=== PATIENT | male | born 1985 | race Caucasian/White ===

== ENCOUNTER 2017-01-13 06:25 | Emergency (ER) | payer OTHER ==
[~2017-01-13 06:25] MED LIST: IBUPROFEN800 MG PO; LORTAB 5/500 TA1 TA1 PO; NO MEDICATIONS; PEN-VEE K PO
== END 2017-01-13 06:33 | disposition home or self-care (01) ==
LOC: SED 06:25
DX: K04.7 Periapical abscess without sinus (principal); K02.9 Dental caries, unspecified; F17.200 Nicotine dependence, unspecified, uncomplicated
CPT/HCPCS: 99282